=== PATIENT | male | born 1990 | race Hispanic/Latino ===

== ENCOUNTER 2021-06-15 17:15 | Emergency (ER) | payer OTHER, SELFPAY ==
--- NOTE | ~2021-06-15 | XR_ITS ---
EXAMINATION: XR ankle LT min 3V EXAM DATE: 06/15/2021 18:06 INDICATION: Swelling/pain x 2 months, pain is to lateral side, no injury . TECHNIQUE: Left ankle frontal, lateral and oblique projections obtained and reviewed. Comparison is m karma to prior examination from 03/19/2017. FINDINGS: The left ankle mortise appears intact. There are no acute fractures or dislocations ident ified. There is no subcutaneous gas. There is soft tissue swelling over the ankle anterolaterally. There are no radiopaque foreign bodies. IMPRESSION: 1. XR ankle LT min 3V exam without acute osseous findings. 2. Soft tissue swelling. Reviewed, dictated and finalized at location A.
[2021-06-15 17:36] VITALS: BP 152/93; PULSE 89; RESP 18; TEMP 36.8; O2SAT 99
[2021-06-15 18:44] VITALS: BP 154/106; PULSE 87; RESP 16; O2SAT 98
--- NOTE | 2021-06-15 19:12 | ED.LOWEXIN ---
HPI - Extremity Injury (Lower) General Chief Complaint: Extremity Injury, Lower Stated Complaint: leg swelling Time Seen by Provider: 06/15/21 18:09 Source: patient Mode of arrival: ambulatory Limitations: no limitations History of Present Illness HPI Narrative: Patient is a 31 year old male who presents complaining of left ankle pain and swelling. Patient reports intermittent swelling in bilateral lower extremities x 2 months. He reports left is more prominent than right, however, both swell. He denies injury to ankle. 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 He denies injury to left ankle but reports it is possible he did not notice. He denies all other complaints at this time. Patient reports that he has no significant medical history. Related Data Home Medications Medication Instructions Recorded Confirmed No Home Medications 12/05/19 06/15/21 Allergies Allergy/AdvReac Type Severity Reaction Status Date / Time No Known Allergies Allergy Verified 06/15/21 17:39 Review of Systems Review of Systems: Narrative: CONSTITUTIONAL: Denies fever, chills, or sweats. EYES: Denies visual changes, redness, or discharge. ENT: Denies rhinorrhea, congestion, sore throat, or otalgia. CARDIOVASCULAR: Denies chest pain, palpitations, or edema. RESPIRATORY: Denies cough or dyspnea. GASTROINTESTINAL: Denies abdominal pain, nausea, vomiting, or diarrhea. GENITOURINARY: Denies dysuria or hematuria. SKIN: Denies rash or itching. MUSCULOSKELETAL: Reports tenderness to left ankle NEUROLOGIC: Denies headache, numbness, dizziness, or weakness. PSYCHIATRIC: Denies anxiety or depression. FORMERLY [facility] Past Medical History Medical History (Updated 06/16/21 @ 00:00 by Jessica Edwards) Asthma Social History Social History (Updated 06/15/21 @ 19:56 by BELINDA Michelle) Smoking status: Former smoker Alcohol intake: current Alcohol use details: Occasional Substance use: current Substance use type: marijuana Other substance usage details: Daily use Gender identity (if verbalized by the patient): Male Comments At the time of signature, I have reviewed and agree with nursing past medical, surgical, social, and family history unless otherwise noted. Please see nursing chart for further information. There is no relevant family history pertinent to the presenting complaint. Exam Narrative: Exam Narrative: GENERAL: Well-appearing, well-nourished, and in no acute distress. HEAD: Normocephalic, atraumatic. EYES: EOMI. No redness or drainage. Conjunctiva are normal. ENT: Mucous membranes pink and moist. CHEST: No respiratory distress. HEART: Regular rate and rhythm. EXTREMITIES: Normal range of motion. Edema to left lateral ankle, no erythema or warmth noted, distal sensation intact, good capillary refill, positive pedal pulse SKIN: Warm, dry, no rash. NEURO: No focal deficits. Alert and oriented x3. Gait steady. PSYCH: Normal affect. No signs of depression or anxiety. Course Vital Signs Vital signs: Vital Signs Temperature 36.8 C 06/15/21 17:36 Pulse Rate 89 06/15/21 17:36 Respiratory Rate 18 06/15/21 17:36 Blood Pressure 152/93 H 06/15/21 17:36 Pulse Oximetry 99 06/15/21 17:36 Temperature 36.6 C 06/15/21 20:41 Pulse Rate 83 06/15/21 20:41 Respiratory Rate 16 06/15/21 20:41 Blood Pressure 158/104 H 06/15/21 20:41 Pulse Oximetry 98 06/15/21 20:41 Reviewed. Patient has been instructed to follow-up with his PCP regarding his blood pressure. MDM - Extremity Injury (Lower) MDM Narrative Medical decision making narrative: Discussed with patient the possible planing of a DVT. Venous Doppler ordered for tomorrow morning. Discussed with patient elevated white count and the need to follow-up with PCP. PCP follow-up referral given the patient at this time. Patient aware of red flags and when to return. Discussed with Dr. Shane who agrees with plan of care, no d
[2021-06-15 19:31] LABS: Basophils Absolute Auto 0.1 K/mm3 (0.0-0.1); Basophils Percent Auto 0.6 % (0.2-1.2); Eosinophils Absolute Auto 0.2 K/mm3 (0-0.3); Eosinophils Percent Auto 1.6 % (0-4.4); Hematocrit 44.9 % (42.0-52.0); Hemoglobin 15.5 g/dL (14.0-18.0); Immature Granulocyte Absolute 0.11 K/mm3 (0.00-0.031); Immature Granulocyte Percent A 0.8 % (0-0.5); Lymphocytes Absolute Auto 3.11 K/mm3 (0.9-3.2); Mean Corpuscular HGB Conc 34.5 g/dl (32-36); Mean Corpuscular Hemoglobin 30.9 pg (26-34); Mean Corpuscular Volume 89.4 fl (80-100); Mean Platelet Volume 10.2 fl (7.4-10.4); Monocytes Absolute Auto 1.1 K/mm3 (0.1-0.6); Monocytes Percent Auto 8.1 % (2.6-8.5); Neutrophils Absolute Auto 8.9 K/mm3 (1.3-6.7); Neutrophils Percent Auto 65.9 % (45.5-73.1); Platelet Count Result 314 k/mm3 (150-375); Red Blood Count 5.02 M/mm3 (4.6-6.20); Red Cell Distribution Width 12.5 % (11.5-14.5); White Blood Count 13.5 K/mm3 (4.5-10.0)
[2021-06-15 19:43] LABS: Alanine Aminotransferase 31 U/L (4-50); Albumin Level 4.2 g/dL (3.5-5.1); Alkaline Phosphatase 133 U/L (38-126); Anion Gap 7 mmol/L (8-16); Aspartate Amino Transferase 32 U/L (17-59); Bilirubin,Total 0.4 mg/dL (0.2-1.3); Blood Urea Nitrogen 12 mg/dL (9-20); Calcium 9.3 mg/dL (8.4-10.2); Carbon Dioxide 25 mmol/L (22-30); Chloride 107 mmol/L (98-107); Estimated CRCL calculation 127 ml/min; Estimated Glomerular Filt Rate > 60; Glucose 109 mg/dL (65-110); Sodium 139 mmol/L (137-145)
[2021-06-15 19:51] LABS: NT Pro B Type Natriuretic Pept 19 pg/mL (5-100)
[2021-06-15 20:41] VITALS: BP 158/104; PULSE 83; RESP 16; TEMP 36.6; O2SAT 98
== END 2021-06-15 20:45 | disposition home or self-care (01) ==
PROVIDERS: Emergency Provider Nurse Practitioner
DX: M79.89 Other specified soft tissue disorders (principal); J45.909 Unspecified asthma, uncomplicated; Z87.891 Personal history of nicotine dependence; R03.0 Elevated blood-pressure reading, without diagnosis of hypertension
CPT/HCPCS: 36415; 73610; 80053; 83880; 85025; 99283

== ENCOUNTER 2021-06-16 07:36 | Outpatient (CLI) | payer OTHER, SELFPAY ==
--- NOTE | ~2021-06-16 | US_ITS ---
EXAMINATION: US venous doppler [facility] DATE: 06/16/2021 08:06 INDICATION: Left lower limb swelling TECHNIQUE: Glover scale images without and with compression and Doppler images of the left lower extrem ity veins were obtained. COMPARISON: None FINDINGS: The left common femoral vein, profunda femoral vein, femoral vein, popliteal vein, peroneal trunk, posterior tibial veins, and greater saphenous vein are patent. IMPRESSION: 1. Patent left lower extremity veins. No evidence of deep venous thrombosis. Reviewed, dictated and finalized at location D.
== END 2021-06-16 07:37 | disposition home or self-care (01) ==
PROVIDERS: PCP Emergency Medicine; Visit Provider Emergency Medicine
DX: R60.9 Edema, unspecified (principal)
CPT/HCPCS: 93971

== ENCOUNTER → 2021-06-23 16:21 | Outpatient (CLI) | payer OTHER, SELFPAY ==
--- NOTE | ~2021-06-23 | XR_ITS ---
EXAMINATION: XR chest 2V DATE: 06/23/2021 16:44 INDICATION: Throat dryness TECHNIQUE: PA and lateral views of the chest are obtained. COMPARISON: None available FINDINGS: The lungs are free of acute opacities. There is no pleural effusion or pneumothorax. The ca rdiomediastinal silhouette is normal. The visualized bones and soft tissues are unremarkable. IMPRESSION: 1. No acute cardiopulmonary abnormality. Reviewed, dictated and finalized at location A.
== END ==
PROVIDERS: PCP Emergency Medicine; Visit Provider Emergency Medicine
DX: J32.9 Chronic sinusitis, unspecified (principal)
CPT/HCPCS: 71046

== ENCOUNTER 2023-03-19 23:18 | Emergency (ER) | payer OTHER, SELFPAY ==
--- NOTE | ~2023-03-19 | CT_ITS ---
EXAMINATION: CT lumbar spine wo con DATE: 03/20/2023 01:20 INDICATION: Low back pain TECHNIQUE: Computed tomography (CT) of the lumbar spine was performed without intravenous contrast. T he dose-length product (DLP) was 1270.88 mGy-cm. Iterative reconstruction was used. COMPARISON: None FINDINGS: There are 2 mm of retrolisthesis of L5 on S1. There is a mild posterior disc bulge at L5-S1 . No fracture is identified. The vertebral body heights and intervertebral disc spaces are maintained . IMPRESSION: 1. Mild lumbar spondylosis without acute findings. Reviewed, dictated and finalized at location A.
--- NOTE | ~2023-03-19 | CT_ITS ---
EXAMINATION: CT brain wo con INDICATION: Head injury COMPARISON: None TECHNIQUE: Standard unenhanced head CT. The dose-length product (DLP) was 681.00 mGy-cm. The mA was a djusted according to patient size. Iterative reconstruction technique was employed. FINDINGS: There is no intracranial hemorrhage, acute infarction, or abnormal mass lesion. The ventric les are normal. There is no abnormal mass effect or midline shift. The bajwa-white matter differentiat ion is normal. The basal cisterns are patent. The orbits are normal. The paranasal sinuses, mastoids and calvarium are normal. IMPRESSION: 1. No acute intracranial abnormality. Reviewed, dictated and finalized at location A.
--- NOTE | ~2023-03-19 | XR_ITS ---
EXAMINATION: XR forearm RT 2V INDICATION: Right forearm pain TECHNIQUE: Two views of the right forearm are obtained on four radiographs. COMPARISON: 08/27/2015 FINDINGS: There is no fracture. 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 There is soft tissue swelling of the forearm. IMPRESSION: 1. No acute osseous abnormality. Reviewed, dictated and finalized at location A.
--- NOTE | ~2023-03-19 | XR_ITS ---
EXAMINATION: XR shoulder RT min 2V INDICATION: Right shoulder pain TECHNIQUE: Four views of the right shoulder are submitted. COMPARISON: None FINDINGS: Normal alignment. No fracture. Glenohumeral and acromioclavicular joint spaces are normal. Soft tissues are unremarkable. IMPRESSION: 1. No acute osseous abnormality. Reviewed, dictated and finalized at location A.
--- NOTE | ~2023-03-19 | CT_ITS ---
EXAMINATION: CT diagnostic chest wo con DATE: 03/20/2023 01:20 INDICATION: Shortness of breath TECHNIQUE: Computed tomography (CT) of the chest was performed without intravenous contrast. The dose -length product (DLP) was 1071.08 mGy-cm. Automated exposure control and iterative reconstruction stan hnique were employed. COMPARISON: None FINDINGS: There is mild atelectasis of the lungs. No pleural effusion or pneumothorax. No pathologica lly enlarged thoracic lymph nodes are identified. The heart size is normal. There is mixed fat and so ft tissue attenuation of the anterior/upper mediastinum. The visible upper abdomen is unremarkable. IMPRESSION: 1. No CT correlate for the patient's symptoms. 2. Mixed fat and soft tissue attenuation in the anterior/upper mediastinum. Recommend follow-up with contrast-enhanced CT or MRI to evaluate for possible mediastinal mass. Reviewed, dictated and finalized at location A. IMPRESSION: 1. No CT correlate for the patient's symptoms. 2. Mixed fat and soft tissue attenuation in the anterior/upper mediastinum. Rec ommend follow-up with contrast-enhanced CT or MRI to evaluate for possible medi astinal mass.
--- NOTE | ~2023-03-19 | XR_ITS ---
EXAMINATION: XR knee RT 3V DATE: 03/20/2023 01:26 INDICATION: Right knee pain TECHNIQUE: Three views of the right knee were obtained. COMPARISON: None. FINDINGS: Alignment is normal. No fracture or osteochondral lesion. Joint spaces are normal with no e rosions. No joint effusion/synovitis. Soft tissues are unremarkable. IMPRESSION: 1. No acute osseous abnormality. Reviewed, dictated and finalized at location A.
--- NOTE | ~2023-03-19 | CT_ITS ---
EXAMINATION: CT cervical spine wo con DATE: 03/20/2023 01:20 INDICATION: Neck pain TECHNIQUE: Computed tomography (CT) of the cervical spine was performed without intravenous contrast. The dose-length product (DLP) was 602.56 mGy-cm. Automated exposure control and iterative reconstruc tion technique were employed. COMPARISON: None FINDINGS: No fracture, dislocation, or subluxation. The vertebral body heights, alignment, and interv ertebral disc spaces are normal. The paravertebral soft tissues are unremarkable. The odontoid proces s is intact. There appears to be a bone island in the right inferior facet at C5. IMPRESSION: 1. No acute osseous abnormality. Reviewed, dictated and finalized at location A.
[2023-03-19 23:25] VITALS: BP 170/101; PULSE 94; RESP 16; TEMP 36.4; O2SAT 100
[2023-03-20 00:01] VITALS: BP 152/98; PULSE 88; RESP 16; O2SAT 99
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
[2023-03-20] MEDS: IBUPROFEN 600 MG TABLET PO (01:25)
[2023-03-20] MEDS: CYCLOBENZAPRINE HCL 5 MG TABLET PO (01:26)
[2023-03-20] MEDS: ACETAMINOPHEN 325 MG TABLET 650 MG PO (01:26)
[2023-03-20 02:46] VITALS: BP 148/66; PULSE 76; RESP 14; O2SAT 98
== END 2023-03-20 02:47 | disposition home or self-care (01) ==
PROVIDERS: Emergency Provider Physician Assistant
DX: S19.9XXA Unspecified injury of neck, initial encounter (principal); S59.911A Unspecified injury of right forearm, initial encounter; S49.91XA Unspecified injury of right shoulder and upper arm, initial encounter; S89.91XA Unspecified injury of right lower leg, initial encounter; J98.59 Other diseases of mediastinum, not elsewhere classified; S39.92XA Unspecified injury of lower back, initial encounter; J45.909 Unspecified asthma, uncomplicated; M47.816 Spondylosis without myelopathy or radiculopathy, lumbar region; V49.40XA Driver injured in collision with unspecified motor vehicles in traffic accident, initial encounter
CPT/HCPCS: 70450; 71250; 72125; 72131; 73030; 73090; 73562; 99284; A9270

== ENCOUNTER 2024-05-02 00:49 | Emergency (ER) | payer OTHER, SELFPAY ==
[2024-05-02 00:54] VITALS: BP 171/96; PULSE 90; RESP 33; TEMP 36.6; O2SAT 97
[2024-05-02 01:58] LABS: Basophils Absolute Auto 0.1 K/mm3 (0.0-0.1); Basophils Percent Auto 0.4 % (0.2-1.2); Eosinophils Absolute Auto 0.2 K/mm3 (0-0.3); Eosinophils Percent Auto 1.4 % (0-4.4); Hemoglobin 14.8 g/dL (14.0-18.0); Immature Granulocyte Absolute 0.07 K/mm3 (0.00-0.031); Immature Granulocyte Percent A 0.6 % (0-0.5); Lymphocytes Absolute Auto 3.36 K/mm3 (0.9-3.2); Lymphocytes Percent Auto 26.8 % (18.3-44.2); Mean Corpuscular HGB Conc 34.4 g/dl (32-36); Mean Corpuscular Hemoglobin 30.4 pg (26-34); Mean Corpuscular Volume 88.3 fl (80-100); Mean Platelet Volume 10.7 fl (7.4-10.4); Monocytes Percent Auto 7.8 % (2.6-8.5); Neutrophils Absolute Auto 7.9 K/mm3 (1.3-6.7); Platelet Count Result 268 k/mm3 (150-375); Red Blood Count 4.87 M/mm3 (4.6-6.20); Red Cell Distribution Width 12.4 % (11.5-14.5); White Blood Count 12.5 K/mm3 (4.5-10.0)
[2024-05-02 02:11] LABS: Alanine Aminotransferase 21 U/L (6-50); Albumin Level 3.9 g/dL (3.5-5.1); Alkaline Phosphatase 133 U/L (38-126); Anion Gap 6 mmol/L (4-12); Aspartate Amino Transferase 22 U/L (17-59); Bilirubin,Total 0.4 mg/dL (0.2-1.3); Blood Urea Nitrogen 16 mg/dL (9-20); Carbon Dioxide 26 mmol/L (22-30); Chloride 106 mmol/L (98-107); Estimated CRCL calculation 107 ml/min; Estimated Glomerular Filt Rate > 60; Glucose 112 mg/dL (65-110); Sodium 138 mmol/L (137-145)
[2024-05-02 02:20] LABS: NT Pro B Type Natriuretic Pept 45 pg/mL (19.9-100)
--- NOTE | 2024-05-02 02:26 | ED.EXTPRO ---
HPI - Extremity Problem General Chief complaint: Extremity Problem,Nontraumatic Stated complaint: Feet have been swollen for last three days Time Seen by Provider: 05/02/24 01:27 History of Present Illness HPI Narrative: Patient is a 34-year-old male who presents to the emergency department this complaining of bilateral lower extremity swelling. Patient states that he has noticed the swelling which is mainly around his bilateral feet approximately 2 days ago and thought that they would improve on their own but the swelling persisted. Patient states that in the past he has been told that the symptoms are due to gout but he states that when his feet swell up due to gout the attacks do not last this long. 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 Patient denies any chest pain or shortness of breath. He denies any history of CHF for any cardiovascular disease. No additional symptoms or concerns at this time. Related Data Home Medications Medication Instructions Recorded Confirmed No Home Medications 05/02/24 Allergies Allergy/AdvReac Type Severity Reaction Status Date / Time No Known Allergies Allergy Verified 05/02/24 00:57 Review of Systems Review of Systems: All systems are reviewed and are negative unless stated otherwise in the HPI. FOR[facility]LY [facility] Past Medical History Medical History Asthma Social History Social History Smoking status: Former smoker Alcohol intake: current Alcohol use details: Occasional Substance use: current Substance use type: marijuana Other substance usage details: Daily use Gender identity (if verbalized by the patient): Male Exam Narrative: General: Alert, awake, afebrile, in no acute distress. HEENT: PERRL, no rhinorrhea, no post nasal drip, oropharynx clear. Cardiovascular: Regular rate and rhythm, no murmurs, rubs or gallops. Respiratory: Clear to auscultation bilaterally, no tachypnea, no wheezing, no rhonchi, no rubs, no respiratory distress. Abdomen: Soft, nontender, nondistended, no rebound, no guarding, no peritoneal signs. Musculoskeletal: Bilateral lower extremity nonpitting edema mainly noted around the ankles and feet. Skin: No rashes or petechia, no signs of infection. Neurological: Alert and oriented to person, place, and time. Follows all commands. No focal deficits, speech is clear and fluent. Course Vital Signs Vital signs: Vital Signs Temperature 98 F 05/02/24 00:54 Pulse Rate 90 05/02/24 00:54 Respiratory Rate 33 H 05/02/24 00:54 Blood Pressure 171/96 H 05/02/24 00:54 Pulse Oximetry 97 05/02/24 00:54 Oxygen Delivery Room Air 05/02/24 00:54 Temperature 98 F 05/02/24 00:54 Pulse Rate 90 05/02/24 00:54 Respiratory Rate 33 H 05/02/24 00:54 Blood Pressure 171/96 H 05/02/24 00:54 Pulse Oximetry 97 05/02/24 00:54 Oxygen Delivery Room Air 05/02/24 00:54 MDM - Extremity (Nontraumatic) MDM Narrative Medical decision making narrative: The patient was evaluated by myself in the emergency department. History is obtained from patient who is an independent historian and physical exam was performed. External medical records were reviewed at this time. IV was established and pertinent tests were ordered. Laboratory results obtained revealing [no acute process BNP noted to be normal at 45. Differential diagnosis considerations include fluid overload, venous insufficiency, and less likely DVT given the bilateral presentation. Comorbidities impacting this visit include history of gout. I have evaluated and discussed social determinants of health with the patient that could potentially impact subsequent diagnosis and treatment plans. On repeat assessment of the patient, reevaluation revealed that the patient is doing well and is in no acute distr
[2024-05-02 02:40] VITALS: BP 163/103; PULSE 79; RESP 28; O2SAT 98
== END 2024-05-02 02:40 | disposition home or self-care (01) ==
PROVIDERS: Emergency Provider Emergency Medicine
DX: R60.0 Localized edema (principal); J45.909 Unspecified asthma, uncomplicated; Z87.891 Personal history of nicotine dependence
CPT/HCPCS: 36415; 80053; 83880; 85025; 99283

== ENCOUNTER 2024-09-25 19:08 | Emergency (ER) | payer OTHER, SELFPAY ==
[2024-09-25 19:20] VITALS: BP 152/114; PULSE 86; RESP 14; TEMP 36.9; O2SAT 99
--- NOTE | 2024-09-25 19:31 | ED.URI ---
HPI - URI/Sore Throat General Chief Complaint: Upper Respiratory Infection Stated Complaint: Cough/Sore Throat Time Seen by Provider: 09/25/24 19:43 History of Present Illness HPI Narrative: Patient presents with 3 day history of cough and body aches with sore throat. He reports girlfriend has had similar symptoms. He denies any fever, chills, sweats. He has not been taking any medications for his symptoms. Says he is using cough drops with good relief. Related Data Home Medications Medication Instructions Recorded Confirmed No Home Medications 05/02/24 09/25/24 Allergies Allergy/AdvReac Type Severity Reaction Status Date / Time No Known Allergies Allergy Verified 09/25/24 19:26 Review of Systems Review of Systems: All systems reviewed & are unremarkable except as noted in HPI and below Constitutional: Constitutional: Reports as per HPI and Reports body ache(s) ENT: Reports system reviewed and no additional complaints, except as documented Cardiovascular: Cardiovascular: Reports no additional cardiovascular complaints Respiratory: Respiratory: Reports as per HPI, Reports no additional respiratory complaints, Reports cough and Denies wheezing Gastrointestinal: Gastrointestinal: Reports no additional gastrointestinal complaints [facility] Past Medical History Medical History Asthma Social History Social History Smoking status: Former smoker Alcohol intake: current Alcohol use details: Occasional Substance use: current Substance use type: marijuana Other substance usage details: Daily use Gender identity (if verbalized by the patient): Male Exam Const: General: cooperative, no acute distress, alert and awake Orientation/consciousness: oriented to person, oriented to place and oriented to time HENMT: Head: normal to inspection Ears: TM's normal bilaterally Mouth: Yes moist mucous membranes Throat: posterior oropharynx normal Resp: Effort & Inspection: normal respiratory effort and able to speak in complete sentences Auscultation: clear to auscultation bilaterally, no crackles, no rales, no rhonchi and no wheezes Cardio: Palpation: normal PMI Rate: regular rate Rhythm: regular rhythm Heart sounds: S1 normal heart sound present and S2 normal heart sound present Neuro: General: oriented to person, oriented to place and oriented to time Cranial nerves: Yes CN's II-XII intact bilaterally Psych: Appearance: grossly normal Thought process: Normal thought process present Insight: Good insight present (Psych) Judgement: Good judgement present (Psych) Course Course Level of Care: Express Care Visit Vital Signs Vital signs: Vital Signs Temperature 98.4 F 09/25/24 19:20 Pulse Rate 86 09/25/24 19:20 Respiratory Rate 14 09/25/24 19:20 Blood Pressure 152/114 H 09/25/24 19:20 Pulse Oximetry 99 09/25/24 19:20 Oxygen Delivery Room Air 09/25/24 19:20 Temperature 98.4 F 09/25/24 19:20 Pulse Rate 86 09/25/24 19:20 Respiratory Rate 14 09/25/24 19:20 Blood Pressure 152/114 H 09/25/24 19:20 Pulse Oximetry 99 09/25/24 19:20 Oxygen Delivery Room Air 09/25/24 19:20 MDM - URI/Sore Throat MDM Narrative Medical decision making narrative: Negative COVID, negative flu, unremarkable exam. Patient requesting work note, this will be provided. Discharge instructions reviewed with patient, as well as provided in writing per nursing staff. The instructions also include specific and strict return/GO TO THE ER as well as f/u information. All questions have been answered, and the patient deny any further questions with discharge and discharge plan. Some parts of this dictation were generated by voice recognition software and may contain typographical and/or grammatical inaccuracies. Differential Diagnosis Differential diagnosis: Likely upper respiratory infection, otitis media, viral infection and influenza Medical Records Attestation: I reviewed the patient's medical records. Lab Data Attestation: I reviewed the patient's lab results. Discharge Plan Discharge Clinical Impression: Elevated blood pressure reading Upper respiratory infection Qualifiers: URI type: unspecified viral URI Qualified Code(s): J06.9 - Acute upper respiratory infection, unspecified Patient Disposition: Home, Self-Care Condition: Stable Instructions: Antibiotic Form Additional Instructions: Treat symptoms using [id number] medications per package instructions. Please discuss your blood pressure with your primary care provider. Normal blood pressure is 120/80. Your blood pressure was 152/114 today. Prescriptions: No Action No Home Medications Follow-up/Referrals: PHYSICIAN,[employer]RI[employer] WORKER [Primary Care Provider] - Stand Alone Forms: Work/School Release IP Time of Disposition: 19:51
[2024-09-25 19:42] LABS: EDCOVIDSCREEN Negative (Negative); EDINFLUASCREEN Negative (Negative); EDINFLUBSCREEN Negative (Negative)
[2024-09-25 19:54] VITALS: BP 156/118
== END 2024-09-25 19:55 | disposition home or self-care (01) ==
PROVIDERS: Emergency Provider Nurse Practitioner Family
DX: R03.0 Elevated blood-pressure reading, without diagnosis of hypertension (principal); J06.9 Acute upper respiratory infection, unspecified; Z20.822 Contact with and (suspected) exposure to COVID-19; Z87.891 Personal history of nicotine dependence; J45.909 Unspecified asthma, uncomplicated; F12.90 Cannabis use, unspecified, uncomplicated
CPT/HCPCS: 87426; 87804; 99212; G0463

== ENCOUNTER 2024-10-23 11:19 | Emergency (ER) | payer OTHER, SELFPAY ==
[2024-10-23 11:32] VITALS: BP 172/110; PULSE 85; RESP 22; TEMP 37.1; O2SAT 99
--- NOTE | 2024-10-23 12:02 | ED_ITS ---
HPI - URI/Sore Throat General Chief Complaint: Upper Respiratory Infection Stated Complaint: Sinus Time Seen by Provider: 10/23/24 11:20 Source: patient Mode of arrival: ambulatory Limitations: no limitations History of Present Illness HPI Narrative: Carlton is a 34-year-old male patient presenting to the clinic today with complaints of sinus congestion for the past 2 weeks. He reports he is coughing up some yellow phlegm. Has sinus pressure. Denies any fever, chills, or body aches. Denies any shortness of breath or chest pain. MD elicited complaint: cough, nasal congestion and sinus pain Related Data Allergies Allergy/AdvReac Type Severity Reaction Status Date / Time No Known Allergies Allergy Verified 10/23/24 11:26 Review of Systems Review of Systems: Pertinent positives per HPI. Patient denies any fever, chills, rash, headache, visual changes, dizziness, shortness of breath, chest pain, palpitations, nausea, vomiting, diarrhea, constipation, abdominal pain, or any urinary issues. [facility] Past Medical History Medical History Asthma Social History Social History Smoking status: Former smoker Alcohol intake: current Alcohol use details: Occasional Substance use: current Substance use type: marijuana Other substance usage details: Daily use Gender identity (if verbalized by the patient): Male Comments At the time of my signature, I reviewed and agree with the nursing past medical, surgical, social, and family history. There is no relevant family history pertinent to the patient complaint. Exam Narrative: General: Well-developed, well nourished, in no apparent distress Head: Normocephalic, atraumatic Eyes: Pupils equally round and reactive to light bilaterally, EOM intact, sclera and conjunctive clear, no discharge, lids normal Ears: TMs intact and clear, ear canals clear, no drainage, grossly hearing normal. Nose: Nares patent, yellow nasal discharge, severe inflammation, maxillary sinus tenderness. Mouth: Oral pharynx without lesions or masses, good dentition, MMM. Neck: Supple, trachea midline, no enlargement of anterior or posterior cervical nodes, no thyroid masses or goiter palpable. Cardio: Regular rate and rhythm, s1 and s2 normal, no murmur appreciated. Resp: Clear to auscultation bilaterally, no rhonchi, rales, wheezing or rubs Course Course Emergency Course: Portions of this record may have been created with voice recognition software. Level of Care: Express Care Visit Vital Signs Vital signs: Vital Signs Temperature 37.1 C 10/23/24 11:32 Pulse Rate 85 10/23/24 11:32 Respiratory Rate 22 H 10/23/24 11:32 Blood Pressure 172/110 H 10/23/24 11:32 Pulse Oximetry 99 10/23/24 11:32 Oxygen Delivery Room Air 10/23/24 11:32 Temperature 37.1 C 10/23/24 11:32 Pulse Rate 85 10/23/24 11:32 Respiratory Rate 22 H 10/23/24 11:32 Blood Pressure 172/110 H 10/23/24 11:32 Pulse Oximetry 99 10/23/24 11:32 Oxygen Delivery Room Air 10/23/24 11:32 Vital signs reviewed MDM - URI/Sore Throat MDM Narrative Medical decision making narrative: At the time of visit patient is resting comfortably on the exam table. Patient appears to be nontoxic. Plan: I suspect patient has acute bacterial rhinosinusitis. Prescription for Augmentin and prednisone was sent to the pharmacy. Supportive measures were discussed with the patient and they voiced understanding discharge instructions and agrees to treatment plan. Return precautions reviewed Differential Diagnosis Differential diagnosis: Likely upper respiratory infection, otitis media, sinusitis, viral infection, bronchitis, influenza, pharyngitis and other (COVID) Discharge Plan Discharge Clinical Impression: Acute bacterial rhinosinusitis Patient Disposition: Home, Self-Care Condition: Stable Instructions: Antibiotic Form, Rhinosinusitis (ED) Additional Instructions: Take prescription medications only as prescribed-Augmentin and prednisone Increase fluids and stay well hydrated Tylenol/motrin for pain/fever Flonase and OTC antihistamines as directed Vicks vapor rub to open sinuses Sinus rinses for congestion Cepacol spray, cough drops, throat lozenges, warm tea with honey/lemon, gargle salt water to soothe throat BRAT diet for diarrhea Clear liquids x 24 hours then advance as tolerated for nausea/vomiting Go to the ED if you develop a worsening in your condition- high fever not controlled by Tylenol or Motrin, dehydration, weakness, lethargy, shortness of breath, or chest pain. Follow up with your PCP in 3-5 days if symptoms persist. Prescriptions: New amoxicillin-pot clavulanate 875-125 mg tablet 1 tablet PO Q12H 10 Days Qty: 20 0RF prednisone 20 mg tablet 40 mg PO DAILY 5 Days Qty: 10 0RF Follow-up/Referrals: PHYSICIAN,[employer] MEMBER [Primary Care Provider] - Stand Alone Forms: Work/School Release IP Time of Disposition: 12:03 Quality NIHSS Nursing Documentation ED NIHSS nursing documentation: reviewed/agree
== END 2024-10-23 12:07 | disposition home or self-care (01) ==
PROVIDERS: Emergency Provider Nurse Practitioner Family
DX: J01.90 Acute sinusitis, unspecified (principal); B96.89 Other specified bacterial agents as the cause of diseases classified elsewhere; Z87.891 Personal history of nicotine dependence
CPT/HCPCS: 99213; G0463

== ENCOUNTER 2025-01-08 13:18 | Emergency (ER) | payer OTHER, SELFPAY ==
--- NOTE | 2025-01-08 13:25 | ED_ITS ---
HPI - Ear Problem General Chief complaint: Ear Stated complaint: Right Ear Irritation Time Seen by Provider: 01/08/25 13:30 Source: patient Mode of arrival: ambulatory Limitations: no limitations History of Present Illness HPI Narrative: Carlton is a 34-year-old male patient presenting to the clinic today with complaints of right ear pain x 2-3 days. He denies any known fevers, chills, body aches. Denies any dental pain. States the pain is worse with trying to chew Related Data Allergies Allergy/AdvReac Type Severity Reaction Status Date / Time No Known Allergies Allergy Verified 01/08/25 13:28 Review of Systems Review of Systems: Pertinent positives per HPI. Patient denies any fever, chills, rash, headache, visual changes, dizziness, cough, shortness of breath, chest pain, palpitations, nausea, vomiting, diarrhea, constipation, abdominal pain, or any urinary issues. [facility] Past Medical History Medical History Asthma Social History Social History Smoking status: Former smoker Alcohol intake: current Alcohol use details: Occasional Substance use: current Substance use type: marijuana Other substance usage details: Daily use Gender identity (if verbalized by the patient): Male Comments At the time of my signature, I reviewed and agree with the nursing past medical, surgical, social, and family history. There is no relevant family history pertinent to the patient complaint. Exam Narrative: General: Well-developed, well nourished, in no apparent distress Head: Normocephalic, atraumatic Eyes: Pupils equally round and reactive to light bilaterally, EOM intact, sclera and conjunctive clear, no discharge, lids normal Ears: Left TMs intact and clear, right TM intact, bulging, red, ear canals ceruminous, no drainage, grossly hearing normal. Nose: Nares patent, no discharge, no inflammation, no sinus tenderness. Mouth: Oral pharynx without lesions or masses, good dentition, MMM. Neck: Supple, trachea midline, no enlargement of anterior or posterior cervical nodes, no thyroid masses or goiter palpable. Cardio: Regular rate and rhythm, s1 and s2 normal, no murmur appreciated. Resp: Clear to auscultation bilaterally, no rhonchi, rales, wheezing or rubs Course Course Emergency Course: Portions of this record may have been created with voice recognition software. Level of Care: Express Care Visit Vital Signs Vital signs: Vital Signs Temperature 37.1 C 01/08/25 13:27 Pulse Rate 90 01/08/25 13:27 Respiratory Rate 16 01/08/25 13:27 Blood Pressure 175/100 H 01/08/25 13:27 Pulse Oximetry 98 01/08/25 13:27 Oxygen Delivery Room Air 01/08/25 13:27 Temperature 37.1 C 01/08/25 13:27 Pulse Rate 90 01/08/25 13:27 Respiratory Rate 16 01/08/25 13:27 Blood Pressure 175/100 H 01/08/25 13:27 Pulse Oximetry 98 01/08/25 13:27 Oxygen Delivery Room Air 01/08/25 13:27 Vital signs reviewed Medical Decision Making MDM Narrative Medical decision making narrative: At the time of visit patient is resting comfortably on the exam table. Patient appears to be nontoxic. Plan: Suspect patient has right otitis media. Prescription for amoxicillin was sent to the pharmacy. Supportive measures were discussed with the patient and they voiced understanding discharge instructions and agrees to treatment plan. Return precautions reviewed Differential Diagnosis Differential Diagnosis: Otitis media, otitis externa, eustachian tube dysfunction, cerumen impaction, upper respiratory infection, serous otitis Vital Signs Vital Signs: Vital Signs Temperature 37.1 C 01/08/25 13:27 Pulse Rate 90 01/08/25 13:27 Respiratory Rate 16 01/08/25 13:27 Blood Pressure 175/100 H 01/08/25 13:27 Pulse Oximetry 98 01/08/25 13:27 Oxygen Delivery Room Air 01/08/25 13:27 Temperature 37.1 C 01/08/25 13:27 Pulse Rate 90 01/08/25 13:27 Respiratory Rate 16 01/08/25 13:27 Blood Pressure 175/100 H 01/08/25 13:27 Pulse Oximetry 98 01/08/25 13:27 Oxygen Delivery Room Air 01/08/25 13:27 Discharge Plan Discharge Clinical Impression: Acute right otitis media Patient Disposition: Home, Self-Care Condition: Stable Instructions: Antibiotic Form, Ear Infection (ED) Additional Instructions: Take any prescribed medications only as directed-amoxicillin Tylenol/motrin as needed for pain May use heating pad to alleviate pain If you get recurrent ear infections it may be warranted to follow up with ENT. Follow up with your PCP in 3-5 days if symptoms persist. Patient Language: Indian Prescriptions: New amoxicillin 875 mg tablet 875 mg PO Q12H 10 Days Qty: 20 0RF Follow-up/Referrals: PHYSICIAN,[employer] INSTALLER [Primary Care Provider] - Time of Disposition: 13:31 Quality NIHSS Nursing Documentation ED NIHSS nursing documentation: reviewed/agree
[2025-01-08 13:27] VITALS: BP 175/100; PULSE 90; RESP 16; TEMP 37.1; O2SAT 98
== END 2025-01-08 13:34 | disposition home or self-care (01) ==
PROVIDERS: Emergency Provider Nurse Practitioner Family
DX: H66.91 Otitis media, unspecified, right ear (principal); J45.909 Unspecified asthma, uncomplicated; Z87.891 Personal history of nicotine dependence; F12.90 Cannabis use, unspecified, uncomplicated
CPT/HCPCS: 99213; G0463